=== PATIENT | male | born 1965 | race African-American/Black ===

== ENCOUNTER 2018-10-09 08:14 | Emergency (ER) | payer MEDICAID ==
[~2018-10-09] VITALS: Ht 180.3 cm; Wt 90.0 kg
[2018-10-09] MEDS ORDERED: IBUPROFEN 800MG TABLET PO ONE (09:00)
[2018-10-09 17:55] VITALS: BP 148/80
== END 2018-10-09 17:57 | disposition home or self-care (01) ==
LOC: ER 08:14
DX: M79.672 Pain in left foot (principal); I10 Essential (primary) hypertension; E05.90 Thyrotoxicosis, unspecified without thyrotoxic crisis or storm
CPT/HCPCS: 29515; 73610; 73630; 73718; 99284

== ENCOUNTER 2021-10-08 09:44 | Emergency (ER) | payer MEDICAID ==
[~2021-10-08] VITALS: Ht 180.3 cm; Wt 95.0 kg
[2021-10-08 10:04] VITALS: BP 128/85
[2021-10-08] MEDS ORDERED: TOPUD PO (10:19)
== END 2021-10-08 12:40 | disposition home or self-care (01) ==
LOC: ER 09:44
DX: M79.10 Myalgia, unspecified site (principal); R51.9 Headache, unspecified; Z20.822 Contact with and (suspected) exposure to COVID-19; I10 Essential (primary) hypertension; E05.90 Thyrotoxicosis, unspecified without thyrotoxic crisis or storm; N40.0 Benign prostatic hyperplasia without lower urinary tract symptoms
CPT/HCPCS: 99281